=== PATIENT | male | born 1945 | race Caucasian/White ===

== ENCOUNTER 2024-12-16 12:08 | Outpatient (CLI) | payer MEDICARE, SELFPAY ==
--- NOTE | 2024-12-16 11:10 | PM.PROC ---
Procedure Note Time Seen by Provider: 13:00 Date Seen: 12/16/24 Provider Contact Time: 13:45 Date of procedure: 12/16/24 Will [facility] bill your pro fee for this procedure?: Yes Procedure: CRYONEUROLYSIS TREATMENT REPORT REFERRING PROVIDER: Morris Short TREATMENT PROVIDER: Marty Delarosa PREOPERATIVE DIAGNOSIS: Right knee osteoarthritis POSTOPERATIVE DIAGNOSIS: Right knee osteoarthritis? PROCEDURE: Cryoneurolysis of Multiple Sensory Nerves of the Knee ANESTHESIA: Local INDICATIONS: The patient is a very pleasant 79-year-old male patient with primary osteoarthritis involving the right knee who presents today for cryoneurolysis of multiple sensory nerves to the knee for severe knee pain.?Patient medical history was reviewed. The risks, benefits, treatment alternatives, and complications were discussed with the patient, including but not limited to bleeding, infection, nerve or tissue damage.?Informed consent was obtained. ? PRE-TREATMENT MOTOR ASSESSMENT/PAIN SCORE: Patient was able to demonstrate intact gross motor function with plantarflexion, dorsiflexion, adduction, abduction, hip flexion, and extension of the lower extremity.?Pre-treatment pain score of 7 out of 10 in the right knee. DESCRIPTION OF PROCEDURE: After obtaining informed consent, the patient was brought back to the treatment room and positioned supine on the table.?The right lower extremity was prepped with Chlorhexadine.?We began the procedure by performing our procedural pause.?Once this was completed and verified to be accurate, I began the procedure by identifying the nerves with the use of bedside ultrasound.?After the nerves were identified, the skin was marked and, using 1% lidocaine plain, the area of the nerves were anesthetized. ? After the anesthetic was administered, the Smart Tip 2190 cryoneurolysis needle was inserted into the treatment sites using ultrasound guidance.?Treatment was then initiated on the right lower extremity with the following nerves treated: Superior, superior medial, superior lateral, inferior medial genicular nerves and the infrapatellar branch of the saphenous nerve. At the termination of the treatment, the cryoneurolysis needle was removed with the patient's skin cleansed and Band-Aids and compression dressing applied. Patient tolerated the procedure without any incident or concern.? Patient was then instructed to stand, mobilize the joint, and was examined to ensure gross motor skills were intact. COMPLICATIONS: None POST-TREATMENT PAIN SCORE: 0 out of 10 in the right knee DISPOSITION: Discharge instructions were given to the patient with education on the post-procedure expectations. Patient was instructed to call the Ortho clinic with any post-procedure concerns or questions.
[2024-12-16 12:31] VITALS: BP 159/73; PULSE 78; RESP 16; TEMP 36.7; O2SAT 96
[2024-12-16 13:45] VITALS: BP 145/74; PULSE 71; RESP 16; TEMP 36.7
== END 2024-12-16 13:57 | disposition home or self-care (01) ==
LOC: OP CLINIC 12:09
PROVIDERS: Visit Provider Nurse Anesthetist, Certified Registered
DX: M17.11 Unilateral primary osteoarthritis, right knee (principal)
CPT/HCPCS: 64640; 76942; C9809

== ENCOUNTER 2024-12-31 06:31 | Day surgery (SDC) | payer MEDICARE, SELFPAY ==
[2024-12-31] VITALS (23 sets, daily range): BP systolic 89–160; BP diastolic 62–95; PULSE 58–100; RESP 14–20; TEMP 35.7–37.4; O2SAT 88–99; BMI 25.9
--- NOTE | 2024-12-31 07:16 | W.PM.H&PU ---
History & Physical Update History & Physical Update H&P Reviewed and patient assessed: No changes noted
--- NOTE | 2024-12-31 07:19 | CRLHL7_ITS ---
For Patients: As a result of the Cures Act, medical imaging exams and procedure reports are released immediately into your electronic medical record. You may view this report before your referring provider. If you have questions, please contact your health care provider. Indication: RT KNEE POST OP Technique: Two views right knee Findings/Impression: Hardware from a right total knee arthroplasty is in satisfactory position. Bone alignment is normal. No sign of acute fracture. Postop changes are within normal limits. Dictated by Iftikhar Stephenson MD @ 12/31/2024 11:06:52 AM (Electronically Signed)
[2024-12-31] MEDS: LACTATED RINGERS 1000 ML 1,000 ML 100 ML IV ×2 (07:45→10:29)
[2024-12-31] MEDS: SODIUM CHLORIDE 0.9 % (FLUSH) 10 ML SYRINGE IVF (07:45)
[2024-12-31] MEDS: OXYCODONE (CR) 10 MG TAB.ER.12H PO (08:15)
[2024-12-31] MEDS: ACETAMINOPHEN 500 MG TABLET 1000 MG PO ×3 (08:15→20:22)
[2024-12-31] MEDS: MIDAZOLAM HCL 1 MG/ML inj IVP (08:19)
--- NOTE | 2024-12-31 08:33 | SUR.PREOP ---
TIME?OUT:?0818 PT/RN/MDA?VERIFICATION?OF?SURGICAL?SITE,?PROCEDURE,?AND?CONSENT OBTAINED?PRIOR?TO?INVASIVE?PROCEDURE.
[2024-12-31] MEDS: TRANEXAMIC ACID 100 MG/ML INJ 1000 MG IV (08:57)
--- NOTE | 2024-12-31 10:03 | P.ORPRC_ITS ---
Procedure Note Date of procedure: 12/31/24 Procedure: PREOPERATIVE DIAGNOSIS: 1. Right knee osteoarthritis, primary, severe POSTOPERATIVE DIAGNOSIS: 1. Right knee osteoarthritis, primary, severe PROCEDURE: 1. Right total knee arthroplasty - subvastus; no tourniquet SURGEON: Edmund Welch MD. PHARMACY SERVICES REPRESENTATIVE: RAJINDER Doan - Of note, a skilled captain assistant was critical for this case to aid in patient positioning, tissue retraction, limb manipulation/positioning, and closure. ANESTHESIA: Spinal anesthetic IMPLANTS: DePuy J&J all cemented TKA - Attune PS femur size 6 narrow Size 5 tibia 5 poly spacer 38 mm patella TOURNIQUET: None EBL: 50 ml COMPLICATIONS: None evident INDICATIONS: The patient is a pleasant 79-year-old male who has experienced severe right knee pain and difficulty bearing weight. Workup included x-rays which revealed severe osteoarthrosis in the knee. Given the deformity, the dysfunction, and the pain, as well as the failure of nonoperative management, recommendation was made for surgery. FINDINGS: Full-thickness chondral loss posterior medial tibial plateau with erosion of this region. Significant chondromalacia remaining medial, patellofemoral, and to a lesser degree lateral compartment. Degenerative meniscus pathology medial greater than lateral. Small to moderate effusion upon entering the joint. DESCRIPTION OF PROCEDURE: Following a thorough discussion of risks, benefits, and alternatives consent was obtained and the right knee was marked. The patient was brought to the operating room and placed supine on the operating table. Induction of anesthesia was undertaken. 2 g IV Ancef and 1 g tranexamic acid was administered within 1 hr of incision preoperatively. Proper time-out was performed identifying proper patient, site, procedure. The operative extremity was prepped and draped in the appropriate sterile fashion using ChloraPrep after the patient was positioned supine with all bony prominences well padded. A longitudinal, anterior, midline skin incision was made starting approximately 3cm proximal to the superior pole of the patella and advanced distal to the tibial tubercle. A subvastus approach was utilized. A medial subperiosteal sleeve was created with knife, edgar elevator and curved osteotome. The retropatellar fatpad was resected and the synovium in the suprapatellar pouch excised to visualize the anterior femoral cortex. Femoral preparation was performed via an intramedullary guide. Step drill allowed access into the femoral canal. The distal cutting guide was placed with 5? of valgus and 11 mm cut on the distal femur due to minor cartilage layer. Femur was sized using a posterior referencing guide in 3? of external rotation. This found have a best fit with the sizing noted above. The 4 in 1 cutting block was then placed, and the distal femur shaped accordingly. The box cut was then created and the trial implant inserted to confirm appropriate fit. We turned our attention to the proximal tibia. Extramedullary guide was utilized for cutting with the goal of being 90 degree cut from the mechanical axis of the tibia in the varus/valgus plane utilizing tibial crest as the primary alignment. Initially a 4 mm resection was performed from the medial tibial plateau. Ultimately, balancing was achieved in both flexion and extension in both varus and valgus. The knee was able to achieve full extension as well comfortably. The patella was initially measured and found have a thickness of 22 mm. It was resected back to approximately 13.5 mm. It was sized to be a best fit with as noted above. This was drilled, trial placed. All trials were placed and found to have an excellent stability and balance. At this stage, trial implants were removed, the knee was thoroughly irrigated with normal saline, and the cement was mixed. After irrigation, the knee was thoroughly dried, and cement placed, with the real tibial and femoral implants placed along with the patella. Trial poly spacer was placed and confirmed to have excellent range of motion and full extension, and the real poly spacer opened and inserted. All extra cement was removed, and a 3 min Betadine soak performed. Finally, a final irrigation round with normal saline was performed. Closure performed with 0 Vicryl and #0 Stratafix for the quad tendon/retinaculum. 2-0 Vicryl for the subcutaneous and 4-0 Stratafix for subcuticular closure. Dressings were applied and the patient was awoken from anesthesia after the tourniquet deflated and transferred the PACU in stable condition. A skilled captain assistant was critical for this case to aid in patient positioning, tissue retraction, bone exposure, limb manipulation/positioning, patient safety, and closure. PLAN: 1. Weight bear as tolerated operative extremity. 2. 23 hr perioperative antibiotics. 3. Ice. 4. PT/OT consults for ambulation assistance/mobility education. 5. Social work consult for discharge planning. 6. DVT prophylaxis with at SCDs and aspirin twice daily.
--- NOTE | 2024-12-31 10:35 | P.NB_ITS ---
Nerve Block Nerve Block Time Seen by Provider: 08:20 Date Seen: 12/31/24 Type of block requested by surgeon for post-operative analgesia: adductor canal Side: right Time out performed: Yes Verification of patient name: Yes Verification of date of : Yes Site marking: site marked Name of person performing procedure: [place] Continuous monitoring Was continuous monitoring of O2 sat, B/P, school lunch monitor, recorded every 15 minutes?: Yes Procedure Checklist: sterile prep, needles and gloves Ultrasound guided. Images saved: Yes Medications given in 5ml increments after negative aspiration: Marcaine %: 0.25 mL: 15 Needle gauge: 20 Precedex (mcg): 25 Patient tolerated procedure well: Yes Block Charges Block Charge (with Pro Fee): Femoral Nerve Use of Ultrasound Machine for Block: Yes- US Guidance/pain block
--- NOTE | 2024-12-31 10:35 | P.NB_ITS ---
Nerve Block Nerve Block Time Seen by Provider: 08:20 Date Seen: 12/31/24 Type of block requested by surgeon for post-operative analgesia: geniculars Side: right Time out performed: Yes Verification of patient name: Yes Verification of date of : Yes Site marking: site marked Name of person performing procedure: [place] Continuous monitoring Was continuous monitoring of O2 sat, B/P, ekg monitor tech, recorded every 15 minutes?: Yes Procedure Checklist: sterile prep, needles and gloves Ultrasound guided. Images saved: Yes Medications given in 5ml increments after negative aspiration: Marcaine %: 0.25 mL: 9 Needle gauge: 25 Patient tolerated procedure well: Yes Block Charges Block Charge (with Pro Fee): Genicular Nerve Block
--- NOTE | 2024-12-31 10:36 | P.ANES_ITS ---
Anesthesia Charges Start Date/Time Anesthesia Start Date: 12/31/24 Anesthesia Start Time: 08:40 Stop Date/Time Anesthesia Stop Date: 12/31/24 Anesthesia Stop Time: 10:39 Summary Extremes of Age - Over 70 or under 1: MDA Coding CPT Codes CPT Codes: ANESTH KNEE ARTHROPLASTY - 49450 ([id number]) P3 - PATIENT W/SEVERE SYS DISEASE, QK - WELDING FOREMAN 2-4 CNCRNT ANES PROC, QX - RESOURCING ADVISOR SVC W/ MD MED DIRECTION Additional Codes: Summary - Extremes of Age - Over 70 or under 1: MDA ([id number])
--- NOTE | 2024-12-31 10:36 | W.ANESCHARGE ---
Anesthesia Charges Start Date/Time Anesthesia Start Date: 12/31/24 Anesthesia Start Time: 08:40 Stop Date/Time Anesthesia Stop Date: 12/31/24 Anesthesia Stop Time: 10:39 Summary Extremes of Age - Over 70 or under 1: MDA Coding CPT Codes CPT Codes: ANESTH KNEE ARTHROPLASTY - 97600 ([id number]) P3 - PATIENT W/SEVERE SYS DISEASE, QK - TIRE CENTER SUPERVISOR 2-4 CNCRNT ANES PROC, QX - FACILITIES COORDINATOR SVC W/ MD MED DIRECTION Additional Codes: Summary - Extremes of Age - Over 70 or under 1: MDA ([id number])
--- NOTE | 2024-12-31 10:39 | P.ANES_ITS ---
Anesthesia Charges Start Date/Time Anesthesia Start Date: 12/31/24 Anesthesia Start Time: 08:40 Stop Date/Time Anesthesia Stop Date: 12/31/24 Anesthesia Stop Time: 10:39 Summary Extremes of Age - Over 70 or under 1: SUBASSEMBLY SUPERVISOR Coding CPT Codes CPT Codes: ANESTH KNEE ARTHROPLASTY - 34584 ([id number]) P3 - PATIENT W/SEVERE SYS DISEASE, QK - ADMINISTRATIVE HEARING OFFICER 2-4 CNCRNT ANES PROC, QX - SUBASSEMBLY SUPERVISOR SVC W/ MD MED DIRECTION Additional Codes: Summary - Extremes of Age - Over 70 or under 1: SUBASSEMBLY SUPERVISOR ([id number])
--- NOTE | 2024-12-31 10:39 | W.ANESCHARGE ---
Anesthesia Charges Start Date/Time Anesthesia Start Date: 12/31/24 Anesthesia Start Time: 08:40 Stop Date/Time Anesthesia Stop Date: 12/31/24 Anesthesia Stop Time: 10:39 Summary Extremes of Age - Over 70 or under 1: FIELD MECHANIC Coding CPT Codes CPT Codes: ANESTH KNEE ARTHROPLASTY - 83565 ([id number]) P3 - PATIENT W/SEVERE SYS DISEASE, QK - OCCUPATIONAL PHYSICIAN 2-4 CNCRNT ANES PROC, QX - FIELD MECHANIC SVC W/ MD MED DIRECTION Additional Codes: Summary - Extremes of Age - Over 70 or under 1: FIELD MECHANIC ([id number])
--- NOTE | 2024-12-31 11:07 | SUR.PHASEI ---
Patient meets discharge criteria from PACU.
--- NOTE | 2024-12-31 11:17 | PM.IMCN1 ---
Date of Consult Patient: Other Consult date: 12/31/24 Requesting Physician: Orthopedics Primary Care Provider: Dr. Mendez, [place] [facility]w Consult Narrative Reason for consult: Medical management of comorbidities Narrative: Samy Torres is a 79 year old male who presented to the hospital today for an elective R TKA. There were no surgical or anesthetic complications noted during procedure. Patient's H&P reviewed, PCP is Dr. Jose D Mendez at [place]. Past medical history significant for: DM2 (noninsulin dependent, last A1C 6.1), Essential HTN, hyperlipidemia, BPH. Postoperative plan: Home with . Patient has no concerns for hospitalist team today. Review of Systems Status of ROS: Reports: 10 or more systems reviewed and unremarkable except as noted in History and below PFSH [facility] Medical History (Updated 12/31/24 @ 11:34 by Suzie Talavera MD) Erectile dysfunction ?N52.9 - Male erectile dysfunction, unspecified (ICD-10) Hyperlipidemia ?E78.5 - Hyperlipidemia, unspecified (ICD-10) Chronic urticaria ?L50.8 - Other urticaria (ICD-10) Overweight ?E66.3 - Overweight (ICD-10) Type 2 diabetes mellitus ?E11.9 - Type 2 diabetes mellitus without complications (ICD-10) Bilateral shoulder pain ?M25.511 - Pain in right shoulder (ICD-10) ?M25.512 - Pain in left shoulder (ICD-10) Hypertension ?I10 - Essential (primary) hypertension (ICD-10) Surgical History (Updated 12/31/24 @ 11:33 by Suzie Talavera MD) Status post right knee replacement ?Z96.651 - Presence of right artificial knee joint (ICD-10) History of arthroscopy of right shoulder (03/28/07) ?Z98.890 - Other specified postprocedural states (ICD-10) History of arthroscopy of left shoulder (01/02/08) ?Z98.890 - Other specified postprocedural states (ICD-10) History of arthroscopy of left knee (03/05/17) ?Z98.890 - Other specified postprocedural states (ICD-10) Social History (Updated 11/30/24 @ 09:14 by Rubina Patel ~ [facility], [facility]) Narrative: -Maritza former smoker 1999 What is your current living situation?: I presently have a place to live Problems where you live: no known problems In the past 12 months, utilities in danger of being shut off: no In past 12 months, lack of transportation kept you from medical appts, meetings, work, or getting things needed for daily living: no In the past 12 mos, have been you worried that your food would run out before you had money to buy more?: never true In the past 12 mos, the food you bought just didn't last and you didn't have money to buy more?: never true Highest level of school completed/degree received: high school graduate Smoking Status: Former smoker What tobacco products do you use: cigarettes Smoking quit date/years: >15 years ago Do you use any of these nicotine containing products: None Second hand tobacco smoke exposure: No How often do you have a drink containing alcohol: 2-3 times a week Alcohol type: beer and wine How many standard drinks containing alcohol do you have on a typical day: 1 or 2 How often do you have six or more drinks on one occasion: Less than monthly AUDIT-C Alcohol total score: 4 Non-prescribed substance use: denies use Caffeine: Yes (coffee) How often does anyone, including family, friends and others, physically hurt you: never How often does anyone, including family, friends and others, insult or talk down to you: never How often does anyone, including family, friends and others, threaten you with harm: never How often does anyone, including family, friends and others, scream or curse at you: never service: No Meds Home Medications and Allergies Home Medications ?Medication ?Instructions ?Recorded ?Confirmed ?Type allopurinol 100 mg tablet 200 mg PO DAILY 12/09/23 12/31/24 History amlodipine 5 mg tablet 5 mg PO DAILY 12/09/23 12/31/24 History atorvastatin 10 mg tablet 10 mg PO DAILY 12/09/23 12/31/24 History cetirizine 10 mg tablet 10 mg PO QDAY PRN 12/09/23 12/31/24 History ketorolac 0.5 % eye drops 1 drp ophthalmic (eye) BID 12/09/23 12/31/24 History losartan 25 mg tablet 25 mg PO DAILY 12/09/23 12/31/24 History tamsulosin 0.4 mg capsule 0.4 mg PO DAILY 12/09/23 12/31/24 History timolol maleate 0.5 % eye drops 1 drp ophthalmic (eye) QAM 12/09/23 12/31/24 History aspirin 81 mg tablet 81 mg PO QDAY 12/15/24 12/31/24 History Held on 12/31/24. Instructions: Resume on 01/31/25. ranitidine HCl 150 mg capsule 150 mg PO DAILY 12/15/24 12/31/24 History acetaminophen 500 mg capsule 500 - 1,000 mg (1 - 2 x 500 mg) PO 12/31/24 Rx Q6H PRN pain #100 caps aspirin 81 mg chewable tablet 81 mg PO BID for DVT prophylaxis 12/31/24 Rx (Aspirin Childrens) 30 days #60 tabs oxycodone 5 mg tablet 2.5 - 5 mg (0.5 - 1 x 5 mg) PO 12/31/24 Rx Q4-6H PRN Pain #42 tabs sennosides 8.6 mg tablet (Senna 17.2 mg (2 x 8.6 mg) PO BID PRN 12/31/24 Rx Lax) constipation #100 tabs Allergies Allergy/AdvReac Type Severity Reaction Status Date / Time No Known Drug Allergies Allergy Verified 12/31/24 07:05 Exam Narrative: Exam Narrative: GEN: Alert and awake, sitting up comfortably in bed HEENT: Edentulous, EOMIs bilaterally, no scleral icterus CV: RRR, No concerning murmurs R: LCTA bilaterally Ext: wwp, no concerning edema Skin: No concerning skin lesions or rashes on exposed skin Neuro: Nonfocal Psych: Appropriate Const: Vital Signs, click to edit/add: Vital Signs - 24 hr 12/31/24 08:09 12/31/24 08:19 12/31/24 08:24 Temperature 99.4 F Pulse Rate 58 L 68 80 Respiratory Rate 16 16 16 Blood Pressure 145/87 H 160/95 H 125/72 Pulse Oximetry 96 96 99 Oxygen Delivery Me thod Room Air Nasal Cannula Nasal Cannula Oxygen Flow Rate 2 2 12/31/24 10:36 12/31/24 10:40 12/31/24 10:45 Temperature 97.6 F Pulse Rate 73 72 69 Respiratory Rate 18 20 19 Blood Pressure 116/69 105/62 110/71 Pulse Oximetry 92 88 96 Oxygen Delivery Me thod Room Air Aerosol Mask Oxygen Flow Rate 6 12/31/24 10:50 12/31/24 10:55 12/31/24 11:00 Temperature 97.7 F Pulse Rate 77 75 70 Respiratory Rate 16 16 16 Blood Pressure 101/72 109/70 110/70 Pulse Oximetry 93 92 90 Oxygen Delivery Me thod Room Air Room Air Room Air Oxygen Flow Rate 0 0 0 12/31/24 11:05 Temperature Pulse Rate 71 Respiratory Rate 16 Blood Pressure 110/71 Pulse Oximetry 91 Oxygen Delivery Me thod Oxygen Flow Rate Assessment and Plan Assessment and plan (1) Status post right knee replacement: Problem comment: - 12/31/24, Dr. Welch Status: Acute (2) Hypertension: Status: Acute (3) Type 2 diabetes mellitus: Problem comment: - last A1C 6.1, diet controlled Status: Acute (4) Hyperlipidemia: Status: Acute Plan - pain management and prophylaxis per orthopedic surgery team - continue home medications for comorbidities - anticipate routine postoperative course - updated bedside, questions answered
[2024-12-31] MEDS: ONDANSETRON 2 MG/ML inj 4 MG IVP (11:38)
[2024-12-31] MEDS: LACTATED RINGERS 1000 ML 1,000 ML 75 ML IV (11:39)
[2024-12-31] MEDS: LACTATED RINGERS 500 ML 500 ML IV (13:43)
[2024-12-31] MEDS: CEFAZOLIN 2 GM in 0.9 % SODIUM CHLORIDE Mini-bag 100 ML IVPB (14:19)
[2024-12-31] MEDS: SENNOSIDES 1 TAB TABLET 2 TAB PO (20:22)
[2024-12-31] MEDS: ASPIRIN 81 MG TABLET EC PO (20:23)
[2025-01-01] MEDS: CEFAZOLIN 2 GM in 0.9 % SODIUM CHLORIDE Mini-bag 100 ML IVPB ×2 (00:29→06:35)
[2025-01-01] MEDS: ACETAMINOPHEN 500 MG TABLET 1000 MG PO ×2 (02:31→09:49)
[2025-01-01 03:00] VITALS: BP 123/71; PULSE 81; RESP 18; TEMP 36.8; O2SAT 90
[2025-01-01 06:20] LABS: Chloride* 101 mmol/L (96-114)
[2025-01-01 06:21] LABS: Potassium* 4.4 mmol/L (3.6-5.1); Sodium* 136 mmol/L (135-149)
[2025-01-01 06:23] LABS: Blood Urea Nitrogen* 22 mg/dL (7-30); Creatinine* 1.1 mg/dL (0.5-1.5); Est. Creatinine Clearance* 59.90; Estimated Glomerular Filt Rate 69 ml/min
[2025-01-01 06:24] LABS: Anion Gap 9 mEq/L (7-15); Calcium* 8.3 mg/dL (8.4-10.6); Carbon Dioxide* 26 mmol/L (20-32); Glucose* 151 mg/dL (60-115)
[2025-01-01 07:00] VITALS: BP 156/82; PULSE 89; RESP 18; TEMP 36.8; O2SAT 93
--- NOTE | 2025-01-01 07:58 | PC.NURSE ---
End of Shift Note 255 Patient was very pleasant and cooperative throughout shift. VSS. Afebrile. SBA, gait belt and walker. A&Ox4. Patient uses call light appropriately. Call light within reach.
[2025-01-01] MEDS: ASPIRIN 81 MG TABLET EC PO (08:09)
[2025-01-01] MEDS: SENNOSIDES 1 TAB TABLET 2 TAB PO (08:09)
--- NOTE | 2025-01-01 10:13 | PC.SOCIAL ---
Discharge planning: heat treat worker met with the pt and his today before discharge. Pt and his feel good about going home today and have no concerns. Social work to follow-up if needed.
--- NOTE | 2025-01-01 13:03 | PM.ORPN ---
Subjective Subjective Time Seen by Provider: 07:30 Date Seen: 01/01/25 Principal diagnosis: Status post right knee replacement Interval history: Gosia has some discomfort in the right knee. He did not sleep great. He will discharge to home today. Ortho Exam Narrative Exam Narrative: Alert and oriented x3. Patient is in no acute distress. Converses without labored breathing. Hearing is grossly intact. Ambulates with a walker. Examination of the right knee shows the dressing is intact. Mild anterior knee hematoma. No erythema or warmth or sign of infection. Able to straight leg raise. CMS intact right lower extremity. Calves are soft and nontender. Const Vital Signs, click to edit/add: Vital Signs - 24 hr 12/31/24 13:06 12/31/24 14:06 12/31/24 15:00 Temperature 97.4 F L 97.5 F L Pulse Rate [Right Pulse Oximeter] 76 82 Respiratory Rate 16 16 Blood Pressure [Left Arm] 120/72 121/83 Pulse Oximetry 94 94 94 Oxygen Delivery Method Room Air Room Air Oxygen Flow Rate 0 0 12/31/24 15:00 12/31/24 15:00 12/31/24 15:06 Temperature 97.5 F L Pulse Rate [Right Pulse Oximeter] 82 Respiratory Rate 16 16 16 Blood Pressure [Left Arm] 123/71 Pulse Oximetry 94 96 Oxygen Delivery Method Room Air Room Air Oxygen Flow Rate 0 0 12/31/24 16:06 12/31/24 17:06 12/31/24 19:00 Temperature 97.8 F 97.8 F 98.3 F Pulse Rate [Right Pulse Oximeter] 82 79 100 Respiratory Rate 16 16 18 Blood Pressure [Left Arm] 136/80 148/87 H 140/93 H Pulse Oximetry 96 96 92 Oxygen Delivery Method Room Air Room Air Room Air Oxygen Flow Rate 0 0 12/31/24 23:00 12/31/24 23:00 12/31/24 23:00 Temperature 98.0 F Pulse Rate [Right Pulse Oximeter] 84 Respiratory Rate 18 Blood Pressure [Left Arm] 124/82 Pulse Oximetry 91 91 91 Oxygen Delivery Method Room Air Room Air Oxygen Flow Rate 01/01/25 03:00 01/01/25 07:00 01/01/25 07:00 Temperature 98.3 F Pulse Rate [Right Pulse Oximeter] 81 Respiratory Rate 18 18 Blood Pressure [Left Arm] 123/71 Pulse Oximetry 90 93 93 Oxygen Delivery Method Room Air Room Air Oxygen Flow Rate 01/01/25 07:00 Temperature 98.3 F Pulse Rate [Right Pulse Oximeter] 89 Respiratory Rate 18 Blood Pressure [Left Arm] 156/82 H Pulse Oximetry 93 Oxygen Delivery Method Room Air Oxygen Flow Rate Assessment and Plan Assessment and plan (1) History of total right knee replacement: Problem details: Right total knee arthroplasty - subvastus; no tourniquet. Dr. Welch, 12/31/24 Status: Acute Assessment and Plan: Plan for discharge is today to home if they meet discharge criteria. DVT prophylaxis includes aspirin 81 mg twice daily x1 month, Compression stockings as needed for swelling. Frequent ambulation, every hour throughout the day. Remove dressing in 1 week. Observe wound and phone Orthopedics with any questions or concerns Return to clinic in 1-2 weeks for a wound check as scheduled Return to clinic in 6 weeks with surgeon Minimize narcotic use. Wean off and discontinue soon as possible. Activities as tolerated. No strenuous activity. Outpatient physical therapy as scheduled. Ice and elevate the operative extremity. No restriction on ice.
== END 2025-01-01 10:40 | disposition home or self-care (01) ==
LOC: OR 06:33 → MEDSURG 06:34
PROVIDERS: Family Medicine; Visit Provider Orthopaedic Surgery Sports Medicine
PROC: (CPT 27447; principal; 2024-12-31 09:15)
DX: M17.11 Unilateral primary osteoarthritis, right knee (principal); G89.18 Other acute postprocedural pain; E11.9 Type 2 diabetes mellitus without complications; I10 Essential (primary) hypertension; E78.5 Hyperlipidemia, unspecified
CPT/HCPCS: 27447; 01402; 36415; 64447; 64454; 73560; 76942; 80048; 82962; 97110; 97116; 97161; 97165; 97530; 97535; 99100; A9270; C1776; J0665; J0690; J1100; J1171; J2250; J2405; J2704; J3010; J7120